=== PATIENT | male | born 1975 | race Caucasian/White ===

== ENCOUNTER 2018-03-30 06:42 | Day surgery (SDC) | payer OTHER ==
[2018-03-30] MEDS ORDERED: Lactated Ringers 1,000 ML IV SCH (06:45)
[2018-03-30] MEDS ORDERED: ceFAZolin 2 GM in Premix Bag 1 BAG IV ONE (08:00)
--- NOTE | 2018-03-30 08:45 | PCM.PN ---
- General Info Date of Service: 03/30/18 - Review of Systems Systems Review Comment:: 42 y/o male here for repair of recurrent left inguinal hernia. The site is confirmed with the patient and marked. The procedure is again reviewed with the patient and his and questions are answered. He agrees to proceed accepting risks. There has been no significant change to the patient's health status since his recent exam. - Patient Data Vitals - Most Recent: Last Vital Signs Temp 97.6 F 03/30/18 07:17 Pulse 52 L 03/30/18 07:17 Resp 20 03/30/18 07:17 BP 125/80 03/30/18 07:17 Pulse Ox 99 03/30/18 07:17 Weight - Most Recent: 197 lb 1.49 oz Med Orders - Current: Current Medications Lactated Ringer's (Ringers, Lactated) 1,000 mls @ 125 mls/hr IV ASDIRECTED ON LICENSE OF [facility] Last Admin: 03/30/18 07:26 Dose: 125 mls/hr Discontinued Medications Cefazolin Sodium/Dextrose 2 gm (/ Premix) 50 mls @ 100 mls/hr IV ONETIME ONE Stop: 03/30/18 08:29 Last Admin: 03/30/18 08:35 Dose: 100 mls/hr - Problem List Review Problem List Initiated/Reviewed/Updated: Yes - My Orders Last 24 Hours: My Active Orders 03/29/18 10:12 Resuscitation Status Routine 03/29/18 Dinner Nothing Per Oral Diet [DIET] 03/30/18 06:45 Patient Status [ADT] Routine Patient to Empty Bladder [RC] ASDIRECTED RT Incentive Spirometry [RC] ASDIRECTED Verify Patient Consent Obtain [RC] ASDIRECTED Lactated Ringers [Ringers, Lactated] 1,000 ml IV ASDIRECTED Peripheral IV Insertion Adult [OM.PC] Routine Sequential Compression Device [OM.PC] Routine - Assessment Assessment:: Recurrent Left Inguinal Hernia - Plan Plan:: Left Inguinal Hernia Repair
[2018-03-30] MEDS ORDERED: Bupivacaine 0.5% 30 ML SDV INFILT ONE ×2 (09:00)
[2018-03-30] MEDS ORDERED: ceFAZolin 1 GM Vial ONE (09:21)
--- NOTE | 2018-03-30 10:29 | PCM.OPNOTE ---
- General Post-Op/Procedure Note Date of Surgery/Procedure: 03/30/18 Operative Procedure(s): Repair Recurrent Left Inguinal Hernia with Mesh Findings: Large indirect left inguinal hernia Pre Op Diagnosis: Recurrent Left Inguinal Hernia Post-Op Diagnosis: Same Anesthesia Technique: General ET Tube Primary Surgeon: Alok Cortes Pathology: none Output, Urine Amount: 0 EBL in mLs: 20 Complications: None Condition: Good
--- NOTE | 2018-03-30 14:48 | OR ---
DATE OF OPERATION: 03/30/2018 SURGEON: Alok Cortes MD PREOPERATIVE DIAGNOSIS: Recurrent left inguinal hernia. POSTOPERATIVE DIAGNOSIS: Recurrent left indirect inguinal hernia. OPERATION PERFORMED: Repair of recurrent left inguinal hernia with mesh. INDICATIONS FOR SURGERY: This 42-year-old male was found to have a bulge in the left groin. This was slowly enlarging and becoming more symptomatic for him, and he comes for elective repair. FINDINGS: The patient has had a previous left inguinal hernia repair with mesh, but there is noted a large indirect hernia on the left side. The hernia sac does contain some omentum, which was adherent to the lining of the sac, but no bowel involvement was noted. The mesh appears adherent to the external oblique fascia, but no mesh was noted on the floor of the inguinal canal. DESCRIPTION OF PROCEDURE: The patient was taken to the operating room and given general endotracheal anesthesia, and the left groin was sterilely prepped and draped. A linear left groin incision was made. This was carried down to the external oblique fascia, which was incised opening the external ring. It was noted, upon opening the external oblique fascia, that the mesh was adherent to the undersurface of this fascial layer. The spermatic cord was isolated and carefully dissected off the surrounding tissue. The spermatic cord was explored and a large indirect sac was identified. This sac was from the remainder of the cord structures. It was opened and the lining of the sac was found to contain some omentum adherent to the interior wall of the sac. This omentum was carefully dissected off the lining of the hernia sac. A portion of the omentum was removed being amputated above clamps and ligated with 2-0 Vicryl. Eventually, the omentum was cleared and able to be reduced intra- abdominally. The hernia sac was otherwise empty. It was rotated on its axis and then suture ligated at the level of the internal ring with a 2-0 Vicryl with a reinforcing tie of 2-0 Vicryl being placed. The sac was amputated above these ties. The floor of the inguinal canal was then reinforced by securing a large sized keyhole-shaped piece of polypropylene mesh in position. The inferior edge of the mesh was secured down to the Beto's ligament, medial to the femoral vessels, and the shelving portion of the inguinal ligament anterior to these vessels with interrupted 0 Prolene. The superior edge of the mesh was secured down to the internal oblique fascia near its fusion with the external oblique fascia also with interrupted 0 Prolene. The spermatic cord was passed through the keyhole defect. Then, the tails of the mesh were secured laterally together with interrupted 0 Prolene, recreating the internal ring such that it would admit one fingertip alongside the spermatic cord. The tails of the mesh were trimmed and then placed into the space between the internal and external oblique fascias lateral to the internal ring. This created a secure reinforcement of the floor of the inguinal canal, and there was no sign of complication. The wound was irrigated with Ancef and saline solution, which had also been used to soak the mesh prior to its placement. The external oblique fascia was then reapproximated with a running 2-0 Vicryl recreating the external ring. The wound was infiltrated with Marcaine and then closure was completed by approximating the Polly's fascia with interrupted 4-0 Vicryl, and the skin with a running 4-0 Vicryl subcuticular stitch, Steri-Strips and Benzoin. Antibiotic ointment and sterile dressing were placed. The patient was then awakened, extubated, and taken from the operating room in a satisfactory condition. ESTIMATED BLOOD LOSS: 20 mL. COMPLICATIONS: None. PROGNOSIS: Good. /[id number] MARIE/ELIZ GARCIA
== END 2018-03-30 12:40 | disposition home or self-care (01) ==
LOC: FB.SDS 06:42
PROVIDERS: ATTEND Surgery
PROC: 0YQ60ZZ Repair Left Inguinal Region, Open Approach (ICD-10-PCS; principal; 2018-03-30)
DX: K40.91 Unilateral inguinal hernia, without obstruction or gangrene, recurrent (principal); Z87.891 Personal history of nicotine dependence
CPT/HCPCS: 49520; C1781; J0690; J7120